=== PATIENT | female | born 1940 | race African-American/Black ===

== ENCOUNTER 2017-11-12 22:29 | Emergency (ER) | payer MEDICARE, OTHER ==
[2017-11-12 22:37] VITALS: BP 150/51
--- NOTE | 2017-11-12 23:40 | ER Document Report ---
ED Medical Screen (RME) - General Chief Complaint: Burn Stated Complaint: POSSIBLE BURN TO BACK Time Seen by Provider: 11/12/17 23:38 Mode of Arrival: Ambulatory Information source: Patient Notes: 77-year-old female presented to ED for burn to the upper back. Son states that she pulled a muscle and then laid on the heating pad and stayed there laying down sleeping. He states he came home from work found that she was on it sleep and on a heating pad made her get off checked her back and it was a blister there. She does have a partial first-degree partial second-degree burn to her upper back. Patient states that the pain is not real bad is just she knows it is there. Son is concerned because she is a diabetic I have greeted and performed a rapid initial assessment of this patient. A comprehensive ED assessment and evaluation of the patient, analysis of test results and completion of medical decision making process will be conducted by an additional ED providers. TRAVEL OUTSIDE OF THE [place] IN LAST 30 DAYS: No - Related Data Allergies/Adverse Reactions: lisinopril [Lisinopril] Allergy (Intermediate, Verified 02/10/14 08:50) olmesartan medoxomil [From Benicar] Adverse Reaction (Intermediate, Verified 02/14 08:50) Zyimpgs-Fal-Wjd Reductase Inhibitor Adverse Reaction (Intermediate, Verified 02/14 08:50) valsartan [From Diovan] Adverse Reaction (Intermediate, Verified 02/10/14 08:50) verapamil [Verapamil] Adverse Reaction (Intermediate, Verified 02/10/14 08:50) amlodipine besylate [From Norvasc] Adverse Reaction (Mild, Verified 02/10/14 08: 50) glipizide [From Glucotrol] Adverse Reaction (Mild, Verified 02/10/14 08:50) Nausea metformin HCl [From Glucophage] Adverse Reaction (Mild, Verified 02/10/14 08:50) Past Medical History - Past Medical History Cardiac Medical History: Reports: Hx Atrial Fibrillation, Hx Hypertension Denies: Hx Coronary Artery Disease, Hx Heart Attack Pulmonary Medical History: Denies: Hx Asthma, Hx Bronchitis, Hx COPD, Hx Pneumonia, Hx Tuberculosis Neurological Medical History: Denies: Hx Cerebrovascular Accident, Hx Seizures Endocrine Medical History: Reports: Hx Diabetes Mellitus Type 2 GI Medical History: Reports: Hx Ulcer Musculoskeltal Medical History: Reports Hx Arthritis - "MY BONES HURT A LITTLE BIT" Past Surgical History: Reports: Hx Tonsillectomy. Denies: Hx Hysterectomy, Hx Pacemaker - Immunizations Hx Diphtheria, Pertussis, Tetanus Vaccination: Yes Physical Exam - Vital signs Vitals: Temp Pulse Resp BP Pulse Ox 98.1 F 66 18 150/51 H 97 11/12/17 22:35 11/12/17 22:35 11/12/17 22:35 11/12/17 22:35 11/12/17 22:35 Course - Vital Signs Vital signs: Temp Pulse Resp BP Pulse Ox 98.1 F 66 18 150/51 H 97 11/12/17 22:35 11/12/17 22:35 11/12/17 22:35 11/12/17 22:35 11/12/17 22:35 Doctor's Discharge - Discharge Referrals: PAT MCNAIR PA [Primary Care Provider] - Follow up as needed
[2017-11-13] MEDS ORDERED: SILVER SULFADIAZINE 1% CREAM 400 GM TP PRN (01:47)
--- NOTE | 2017-11-13 01:50 | ER Document Report ---
ED General - General Chief Complaint: Burn Stated Complaint: POSSIBLE BURN TO BACK Time Seen by Provider: 11/12/17 23:38 Mode of Arrival: Ambulatory Notes: Patient presents with complaint of possible burn to her upper back. Patient reports that she was doing yard work and pulled a muscles so she used a heating pad and fell asleep on it for approximately two hours. Patient has no other complaints. TRAVEL OUTSIDE OF THE [place] IN LAST 30 DAYS: No - Related Data Allergies/Adverse Reactions: lisinopril [Lisinopril] Allergy (Intermediate, Verified 02/10/14 08:50) olmesartan medoxomil [From Benicar] Adverse Reaction (Intermediate, Verified 02/14 08:50) Pjkqtzu-Clg-Uwy Reductase Inhibitor Adverse Reaction (Intermediate, Verified 02/14 08:50) valsartan [From Diovan] Adverse Reaction (Intermediate, Verified 02/10/14 08:50) verapamil [Verapamil] Adverse Reaction (Intermediate, Verified 02/10/14 08:50) amlodipine besylate [From Norvasc] Adverse Reaction (Mild, Verified 02/10/14 08: 50) glipizide [From Glucotrol] Adverse Reaction (Mild, Verified 02/10/14 08:50) Nausea metformin HCl [From Glucophage] Adverse Reaction (Mild, Verified 02/10/14 08:50) Past Medical History - General Information source: Patient - Social History Smoking Status: Never Smoker Chew tobacco use (# tins/day): No Frequency of alcohol use: None Drug Abuse: None Family History: Reviewed & Not Pertinent Patient has suicidal ideation: No Patient has homicidal ideation: No - Past Medical History Cardiac Medical History: Reports: Hx Atrial Fibrillation, Hx Hypertension Denies: Hx Coronary Artery Disease, Hx Heart Attack Pulmonary Medical History: Denies: Hx Asthma, Hx Bronchitis, Hx COPD, Hx Pneumonia, Hx Tuberculosis Neurological Medical History: Denies: Hx Cerebrovascular Accident, Hx Seizures Endocrine Medical History: Reports: Hx Diabetes Mellitus Type 2 Renal/ Medical History: Denies: Hx Peritoneal Dialysis GI Medical History: Reports: Hx Ulcer Musculoskeletal Medical History: Reports Hx Arthritis - "MY BONES HURT A LITTLE BIT" Past Surgical History: Reports: Hx Tonsillectomy. Denies: Hx Hysterectomy, Hx Pacemaker - Immunizations Hx Diphtheria, Pertussis, Tetanus Vaccination: Yes Review of Systems - Review of Systems Constitutional: No symptoms reported EENT: No symptoms reported Cardiovascular: No symptoms reported Respiratory: No symptoms reported Gastrointestinal: No symptoms reported Genitourinary: No symptoms reported Female Genitourinary: No symptoms reported Musculoskeletal: No symptoms reported Skin: No symptoms reported Hematologic/Lymphatic: See HPI Neurological/Psychological: No symptoms reported Physical Exam - Vital signs Vitals: Temp Pulse Resp BP Pulse Ox 98.1 F 66 18 150/51 H 97 11/12/17 22:35 11/12/17 22:35 11/12/17 22:35 11/12/17 22:35 11/12/17 22:35 - Notes Notes: PHYSICAL EXAMINATION: GENERAL: Well-appearing, well-nourished and in no acute distress. HEAD: Atraumatic, normocephalic. EYES: Pupils equal round and reactive to light, extraocular movements intact, conjunctiva are normal. ENT: Nares patent, oropharynx clear without exudates. Moist mucous membranes. NECK: Normal range of motion, supple without lymphadenopathy LUNGS: Breath sounds clear to auscultation bilaterally and equal. No wheezes rales or rhonchi. HEART: Regular rate and rhythm without murmurs ABDOMEN: Soft, nontender, nondistended abdomen. No guarding, no rebound. No masses appreciated. Female : deferred Musculoskeletal: Normal range of motion, no pitting or edema. No cyanosis. NEUROLOGICAL: Cranial nerves grossly intact. Normal speech, normal gait. Normal sensory, motor exams PSYCH: Normal mood, normal affect. SKIN: First degree burn/erythema noted to right upper back near scapula measuring 20 cm x 20 cm. Second degree burn with mild blistering noted to a 4 cm x 4 cm area in the same location. Course - Re-evaluation Re-evalutation: Silvadene cream applied to right scapula area. Patients Son at bedside reports that he will assist with application of the burn cream at home and will make an appointment with her primary care provider tomorrow afternoon. Will follow up for burn reassessment. - Vital Signs Vital signs: Temp Pulse Resp BP Pulse Ox 98.1 F 66 18 150/51 H 97 11/12/17 22:35 11/12/17 22:35 11/12/17 22:35 11/12/17 22:35 11/12/17 22:35 Discharge - Discharge Clinical Impression: Burn Condition: Stable Disposition: HOME, SELF-CARE Additional Instructions: Hirsch The seriousness of a burn is not always obvious at first. Delayed tissue damage and secondary infection may occur despite proper treatment. Proper care is very important. A burn that is third-degree may need skin grafting. Most hirsch, however, are simply protected with dressings until healed. Keep the burn clean. If the dressing gets wet, remove it and blot the wound dry, then apply a fresh dressing. Dressings should be changed at least once daily. Soaks to remove crusting are usually started in about two days. Hirsch in certain areas require stretching to prevent disabling tightness. Your doctor will advise you about this. For pain control, you may frequently apply a hand towel that has been dipped in water with ice cubes. Do not apply ice directly to the burned areas. If any signs of infection occur (swelling, redness, increasing tenderness, red streaks, tender lumps in the armpit or groin above the burn, or fever), contact the doctor immediately. Please apply the Silvadene cream to the burn twice daily after cleansing with water. Please call Dr. Manzo in the morning and schedule an appointment. Referrals: ERICH MANZO MD [Primary Care Provider] - Follow up as needed
[2017-11-13] MEDS ORDERED: DIPH/PERTUSS(ACELL)/TETANUS VAC/PF 0.5 ML SYR (>=10YO) IM ONE (01:54)
== END 2017-11-13 02:20 | disposition home or self-care (01) ==
LOC: ER 22:29
DX: T21.03XA Burn of unspecified degree of upper back, initial encounter (principal); X19.XXXA Contact with other heat and hot substances, initial encounter; Y93.9 Activity, unspecified; Y92.009 Unspecified place in unspecified non-institutional (private) residence as the place of occurrence of the external cause; Y99.9 Unspecified external cause status; Z88.8 Allergy status to other drugs, medicaments and biological substances; I48.91 Unspecified atrial fibrillation; I10 Essential (primary) hypertension; E11.9 Type 2 diabetes mellitus without complications; M19.90 Unspecified osteoarthritis, unspecified site
CPT/HCPCS: 99283; 90471; 90715; J3490

== ENCOUNTER → 2017-12-23 | Outpatient (CLI) | payer MEDICARE, OTHER ==
[2017-12-23 15:50] LABS: ALANINE AMINOTRANSFERASE 24 U/L (9-52); ALBUMIN 4.5 g/dL (3.5-5.0); ALKALINE PHOSPHATASE 81 U/L (38-126); ANION GAP 14 (5-19); ASPARTATE AMINO TRANSFERASE 20 U/L (14-36); BILIRUBIN,DIRECT 0.3 mg/dL (0.0-0.4); BILIRUBIN,TOTAL 0.6 mg/dL (0.2-1.3); BLOOD UREA NITROGEN 12 mg/dL (7-20); CALCIUM 9.9 mg/dL (8.4-10.2); CARBON DIOXIDE 28 mmol/L (22-30); CHLORIDE 105 mmol/L (98-107); GLUCOSE 115 mg/dL (75-110); POTASSIUM 4.4 mmol/L (3.6-5.0); SODIUM 146.7 mmol/L (137-145); TOTAL PROTEIN 8.1 g/dL (6.3-8.2)
== END ==
LOC: OD 14:07
PROVIDERS: ATTEND Internal Medicine Geriatric Medicine
DX: I10 Essential (primary) hypertension (principal)
CPT/HCPCS: 36415; 80053

== ENCOUNTER 2018-04-20 17:14 | Emergency (ER) | payer MEDICARE, OTHER ==
--- NOTE | 2018-04-20 18:16 | ER Document Report ---
ED Extremity Problem, Upper - General Mode of Arrival: Ambulatory Information source: Patient, Relative TRAVEL OUTSIDE OF THE [place] IN LAST 30 DAYS: No - HPI Patient complains to provider of: Pain, Swelling - Erythema, Hand, Wrist Onset: Other - Thursday Recent injury: No Quality of pain: Sharp Severity of pain: Moderate Pain Level: 4 Associated symptoms: Other Exacerbated by: Movement, Exertion Relieved by: Nothing Similar symptoms previously: No Recently seen / treated by doctor: Yes - To urgent care and they sent her to the emergency room - General Chief Complaint: Hand Pain Stated Complaint: PAIN/SWELLING LEFT ARM Time Seen by Provider: 04/20/18 17:54 Notes: 77-year-old female presented to ED for complaint of pain redness and swelling to the left hand and wrist. Patient states the pain redness and swelling started on Thursday and has progressed since then. Patient states she has a history of blood pressure arthritis and diabetes. She states she does not have a history of gout. She denies any injuries to the wrist or hand. Patient is answering questions appropriately but her visitor states she does have dementia and is on medication for memory. (ANGÉLICA MEDLEY) - Related Data Allergies/Adverse Reactions: lisinopril [Lisinopril] Allergy (Intermediate, Verified 02/10/14 08:50) olmesartan medoxomil [From Benicar] Adverse Reaction (Intermediate, Verified 02/14 08:50) Umhagzv-Iij-Gpc Reductase Inhibitor Adverse Reaction (Intermediate, Verified 02/14 08:50) valsartan [From Diovan] Adverse Reaction (Intermediate, Verified 02/10/14 08:50) verapamil [Verapamil] Adverse Reaction (Intermediate, Verified 02/10/14 08:50) amlodipine besylate [From Norvasc] Adverse Reaction (Mild, Verified 02/10/14 08: 50) glipizide [From Glucotrol] Adverse Reaction (Mild, Verified 02/10/14 08:50) Nausea metformin HCl [From Glucophage] Adverse Reaction (Mild, Verified 02/10/14 08:50) Past Medical History - General Information source: Patient - Social History Smoking Status: Never Smoker Cigarette use (# per day): No Chew tobacco use (# tins/day): No Frequency of alcohol use: None Drug Abuse: None Lives with: Alone Family History: Reviewed & Not Pertinent Patient has suicidal ideation: No Patient has homicidal ideation: No - Past Medical History Cardiac Medical History: Reports: Hx Atrial Fibrillation, Hx Hypertension Pulmonary Medical History: Reports: None EENT Medical History: Reports: None Neurological Medical History: Reports: Other - Dementia Endocrine Medical History: Reports: Hx Diabetes Mellitus Type 2 Renal/ Medical History: Reports: None GI Medical History: Reports: Hx Ulcer Musculoskeletal Medical History: Reports Hx Arthritis - "MY BONES HURT A LITTLE BIT" Skin Medical History: Reports None Psychiatric Medical History: Reports: Hx Dementia Traumatic Medical History: Reports: None Infectious Medical History: Reports: None Past Surgical History: Reports: Hx Tonsillectomy - Immunizations Immunizations up to date: Yes Hx Diphtheria, Pertussis, Tetanus Vaccination: Yes Review of Systems - Review of Systems Constitutional: No symptoms reported EENT: No symptoms reported Cardiovascular: No symptoms reported Respiratory: No symptoms reported Gastrointestinal: No symptoms reported Genitourinary: No symptoms reported Female Genitourinary: No symptoms reported Musculoskeletal: Joint pain, Joint swelling, Other - Pain redness and swelling to the left wrist and hand Skin: No symptoms reported Hematologic/Lymphatic: No symptoms reported Neurological/Psychological: No symptoms reported -: Yes All other systems reviewed and negative Physical Exam - Vital signs Interpretation: Normal - General General appearance: Appears well, Alert - HEENT Head: Normocephalic, Atraumatic Eyes: Normal Pupils: PERRL - Respiratory Respiratory status: No respiratory distress Chest status: Nontender Breath sounds: Normal Chest palpation: Normal - Cardiovascular Rhythm: Regular Heart sounds: Normal auscultation Murmur: No - Abdominal Inspection: Normal Distension: No distension Bowel sounds: Normal Tenderness: Nontender Organomegaly: No organomegaly - Back Back: Normal, Nontender - Extremities General lower extremity: Normal inspection, Nontender, Normal color, Normal ROM , Normal temperature, Normal weight bearing. No: Jimbo's sign Wrist: Tender, Limited ROM - 2 pain, Other. No: Normal, Nontender, Axial load of thumb pain, Abrasion, Deformity, Dislocation, Ecchymosis, Instability, Laceration, Navicular tenderness Hand: Tender - Erythematous warm mildly swollen, No evidence of human bite, No evidence of FB - Erythema, Swelling. No: Normal, Nontender, Abrasion, Deformity , Dislocation, Ecchymosis, Instability, Nail injury, Laceration, Tendon deficit , Other - Neurological Neuro grossly intact: Yes Cognition: Normal Orientation: AAOx4 [place] Coma Scale Eye Opening: Spontaneous [place] Coma Scale Verbal: Oriented [place] Coma Scale Motor: Obeys Commands [place] Coma Scale Total: 15 Speech: Normal Motor strength normal: LUE, RUE, LLE, RLE Sensory: Normal - Psychological Associated symptoms: Normal affect, Normal mood - Skin Skin Temperature: Warm Skin Moisture: Dry Skin Color: Normal - Vital signs Vitals: Temp Pulse Resp BP Pulse Ox 98.3 F 64 16 146/50 H 95 04/20/18 17:23 1818 17:23 1818 17:23 18 17:23 18 17:23 Course - Diagnostic Test Radiology reviewed: Image reviewed, Reports reviewed - Re-evaluation Re-evalutation: 04/20/18 21:[address] Damon for the red swollen painful hand. X-ray was negative for any acute changes positive for arthritis. There is no obvious source for infection. Patient was treated with 40 mg of prednisone p.o. and Keflex. Daughter stated she was taken the patient to the primary care doctor tomorrow for follow-up. Patient has no history of gout and no history of smoking drinking or any drugs that should be causing gout. Patient is a diabetic on blood thinner with high blood pressure. Patient was discharged home with prescription for Keflex. (ANGÉLICA MEDLEY) 04/20/18 22:27 Evaluated patient as requested. exam is significant for erythema, warmth of the left hand. No breaks in skin, no deformity, FROM although painful, no kanavel signs, sensation/strength intact. Patient without systemic symptoms of fever, chills malaise or vomiting. Patient has no history of gout has not had any changes in her diet, denies injury. Unclear etiology. Recommended cellulitis coverage. Patient has appointment with pcp tomorrow. (CRIS DAMON) - Vital Signs Vital signs: Temp Pulse Resp BP Pulse Ox 98.3 F 67 16 128/74 H 98 18 17:23 1818 19:08 18 19:08 04/20/18 19:08 04/20/18 19:08 Discharge - Discharge Clinical Impression: Pain and swelling of right wrist Condition: Stable Disposition: HOME, SELF-CARE Additional Instructions: You were seen today for pain redness and swelling to your left wrist Your x-ray shows arthritis. There are no openings in the skin for a source for an infection but the area is erythematous or red. You do not have any history of gout or any risk factors for gout. You have been treated today with 1 dose of prednisone and antibiotics for your symptoms. CELLULITIS: You have an infection of your skin and underlying soft tissues called cellulitis. This is due to bacteria, which can enter through any break in the skin, or even through an irritated hair follicle. Untreated, cellulitis will usually worsen. Antibiotics are required. Usually, warm packs or warm soaks, and elevation of the infected area are recommended. You should start getting better within 24 to 36 hours. Most infections respond quickly to the right medication. Follow-up care is important, however, to check for abscess (boil) formation, unsuspected foreign body, or resistant infection. If you develop fever, chills, or if the area of infection is becoming rapidly more swollen or painful, call the doctor at once. Cephalexin The antibiotic you've been prescribed is a member of the cephalosporin class. This type of antibiotic covers a wide variety of infections, including those of the skin, lungs, and urinary tract. It's useful for staph infections. This antibiotic is slightly similar to the penicillin family. In rare cases , a person who is allergic to penicillin will also be allergic to this medication. If you have had a severe allergic reaction to penicillin, and have not taken this antibiotic since that time, notify your doctor. Antibiotics which cover many germs ("broad spectrum" antibiotics) are more likely to cause diarrhea or "yeast" infections. Women prone to vaginal yeast problems may suffer an attack after taking this antibiotic. In infants, oral thrush (white spots "stuck" on the cheek) or yeast diaper rash may result. See your doctor if these problems occur. Call at once if you develop itching, hives , shortness of breath, or lightheadedness. FOLLOW-UP CARE: If you have been referred to a physician for follow-up care, call the physician s office for an appointment as you were instructed or within the next two days. If you experience worsening or a significant change in your symptoms, notify the physician immediately or return to the Emergency Department at any time for re-evaluation. Prescriptions: Cephalexin Monohydrate [Keflex 500 mg Capsule] 500 mg PO Q6H 5 Days capsule Forms: Elevated Blood Pressure Referrals: ERICH MANZO MD [Primary Care Provider] - Follow up tomorrow
--- NOTE | 2018-04-20 18:40 | RADIOLOGY REPORT (SQ) ---
EXAM DESCRIPTION: HAND LEFT 3 VIEWS COMPLETED DATE/TIME: 04/20/2018 6:30 pm REASON FOR STUDY: pain swelling redness COMPARISON: None. EXAM PARAMETERS: NUMBER OF VIEWS: Three views. TECHNIQUE: AP, lateral and oblique radiographic images acquired of the left hand. LIMITATIONS: None. FINDINGS: MINERALIZATION: Normal. BONES: No acute fracture. Distal degenerative changes with osteophytes. JOINTS: No effusions. SOFT TISSUES: No soft tissue swelling. No foreign body. OTHER: No other significant finding. IMPRESSION: No acute fracture. Osteoarthritis. TECHNICAL DOCUMENTATION: JOB ID: [id number] [employer]- All Rights Reserved Reading location - IP/workstation name: [email or web address]
--- NOTE | 2018-04-20 18:40 | RADIOLOGY REPORT (SQ) ---
EXAM DESCRIPTION: WRIST LEFT 3 VIEWS COMPLETED DATE/TIME: 04/20/2018 6:30 pm REASON FOR STUDY: pain swelling redness COMPARISON: None. NUMBER OF VIEWS: Three views. TECHNIQUE: AP, lateral, and oblique radiographic images acquired of the left wrist. LIMITATIONS: None. FINDINGS: MINERALIZATION: Normal. BONES: No acute fracture or dislocation. No worrisome bone lesions. Normal alignment. Degenerative ch anges of the trapezium and scaphoid articulation. JOINTS: No erosions. No baldemar-articular osteopenia. No chondrocalcinosis. SOFT TISSUES: No swelling. No calcifications. OTHER: No other significant finding. IMPRESSION: Osteoarthritis. TECHNICAL DOCUMENTATION: JOB ID: [id number] [employer]- All Rights Reserved Reading location - IP/workstation name: [email or web address]
[2018-04-20] MEDS ORDERED: CEPHALEXIN 500 MG CAPSULE PO ONE (18:48)
[2018-04-20] MEDS ORDERED: PREDNISONE 20 MG TABLET PO ONE (18:48)
[2018-04-20 19:09] VITALS: BP 128/74
== END 2018-04-20 19:09 | disposition home or self-care (01) ==
LOC: ER 17:14
DX: M79.642 Pain in left hand (principal); M79.89 Other specified soft tissue disorders; I48.91 Unspecified atrial fibrillation; I10 Essential (primary) hypertension; E11.9 Type 2 diabetes mellitus without complications
CPT/HCPCS: 99283; 73130; 73110; A9270 ×2; J7512

== ENCOUNTER 2018-06-22 15:35 | Emergency (ER) | payer MEDICARE ==
--- NOTE | 2018-06-22 17:40 | ER Document Report ---
ED Medical Screen (RME) - General Chief Complaint: Arm Pain Stated Complaint: LEFT ARM AND LEG PAIN Time Seen by Provider: 06/22/18 17:12 Primary Care Provider: ERICH MANZO MD [Primary Care Provider] - Follow up as needed Mode of Arrival: Ambulatory Information source: Patient Notes: Patient is an 78-year-old female who presents to the emergency department with complaints of left arm pain and left leg pain. Patient reports the left arm pain started yesterday in the left leg pain started 2-3 days ago. She states that she is normally ambulatory however she now cannot walk due to the pain. Exam: Equal strength bilaterally. Normal sensation bilaterally. No focal neurological deficits. I have greeted and performed a rapid initial assessment of this patient. A comprehensive ED assessment and evaluation of the patient, analysis of test results and completion of the medical decision making process will be conducted by additional ED providers. Dictation of this chart was performed using voice recognition software; therefore, there may be some unintended grammatical errors. TRAVEL OUTSIDE OF THE [place] IN LAST 30 DAYS: No - Related Data Allergies/Adverse Reactions: lisinopril [Lisinopril] Allergy (Intermediate, Verified 02/10/14 08:50) olmesartan medoxomil [From Benicar] Adverse Reaction (Intermediate, Verified 02/10/14 08:50) Gknwnci-Rds-Jcw Reductase Inhibitor Adverse Reaction (Intermediate, Verified 02/10/14 08:50) valsartan [From Diovan] Adverse Reaction (Intermediate, Verified 02/10/14 08:50) verapamil [Verapamil] Adverse Reaction (Intermediate, Verified 02/10/14 08:50) amlodipine besylate [From Norvasc] Adverse Reaction (Mild, Verified 02/10/14 08:50) glipizide [From Glucotrol] Adverse Reaction (Mild, Verified 02/10/14 08:50) Nausea metformin HCl [From Glucophage] Adverse Reaction (Mild, Verified 02/10/14 08:50) Past Medical History - Social History Chew tobacco use (# tins/day): No Frequency of alcohol use: None Drug Abuse: None - Past Medical History Cardiac Medical History: Reports: Hx Atrial Fibrillation, Hx Hypertension Denies: Hx Heart Attack Pulmonary Medical History: Denies: Hx Asthma, Hx Bronchitis, Hx COPD, Hx Pneumonia, Hx Tuberculosis Neurological Medical History: Denies: Hx Seizures Endocrine Medical History: Reports: Hx Diabetes Mellitus Type 2 Renal/ Medical History: Denies: Hx Peritoneal Dialysis GI Medical History: Reports: Hx Ulcer Musculoskeltal Medical History: Reports Hx Arthritis - "MY BONES HURT A LITTLE BIT" Psychiatric Medical History: Reports: Hx Dementia Past Surgical History: Reports: Hx Tonsillectomy. Denies: Hx Hysterectomy - Immunizations Immunizations up to date: Yes Hx Diphtheria, Pertussis, Tetanus Vaccination: Yes Physical Exam - Vital signs Vitals: Temp Pulse Resp BP Pulse Ox 98.2 F 69 16 138/44 H 96 06/22/18 15:47 06/22/18 15:47 06/22/18 15:47 06/22/18 15:47 06/22/18 15:47 Course - Vital Signs Vital signs: Temp Pulse Resp BP Pulse Ox 98.2 F 69 16 138/44 H 96 06/22/18 15:47 06/22/18 15:47 06/22/18 15:47 06/22/18 15:47 06/22/18 15:47 Doctor's Discharge - Discharge Referrals: ERICH MANZO MD [Primary Care Provider] - Follow up as needed
[2018-06-22 18:37] LABS: ABSOLUTE BASOPHILS # (AUTO) 0.1 10^3/uL (0.0-0.2); ABSOLUTE LYMPHOCYTES (AUTO) 1.3 10^3/uL (0.5-4.7); ABSOLUTE MONOCYTES (AUTO) 0.9 10^3/uL (0.1-1.4); ABSOLUTE NEUT (AUTO) 7.3 10^3/uL (1.7-8.2); EOSINOPHILS % (AUTO) 0.3 % (0-6); HEMATOCRIT 36.9 % (36.0-47.0); HEMOGLOBIN 12.6 g/dL (12.0-15.5); LYMPHOCYTES % (AUTO) 13.6 % (13-45); MEAN CORPUSCULAR HEMOGLOBIN 31.9 pg (27.0-33.4); MEAN CORPUSCULAR HGB CONC 34.1 g/dL (32.0-36.0); MEAN CORPUSCULAR VOLUME 93 fl (80-97); MONOCYTES % (AUTO) 9.3 % (3-13); PLATELET COUNT 219 10^3/uL (150-450); RED BLOOD COUNT 3.96 10^6/uL (3.72-5.28); RED CELL DISTRIBUTION WIDTH 14.1 % (11.5-14.0); SEGMENTED NEUTROPHILS % (AUTO) 75.8 % (42-78); TOTAL CELLS COUNTED % (AUTO) 100 %; WHITE BLOOD COUNT 9.6 10^3/uL (4.0-10.5)
[2018-06-22 18:47] LABS: APPEARANCE,URINE CLOUDY; BILIRUBIN,URINE NEGATIVE (NEGATIVE); COLOR,URINE YELLOW; GLUCOSE, URINE 50 mg/dL (NEGATIVE); KETONES,URINE NEGATIVE (NEGATIVE); LEUKOCYTE ESTERASE,URINE NEGATIVE (NEGATIVE); NITRITE,URINE NEGATIVE (NEGATIVE); PROTEIN,URINE 30 mg/dL (NEGATIVE); URINE SPECIFIC GRAVITY 1.018; UROBILINOGEN,URINE NEGATIVE mg/dL (<2.0)
[2018-06-22 18:55] LABS: ALANINE AMINOTRANSFERASE 25 U/L (9-52); ALBUMIN 4.4 g/dL (3.5-5.0); ALKALINE PHOSPHATASE 75 U/L (38-126); ANION GAP 12 (5-19); ASPARTATE AMINO TRANSFERASE 20 U/L (14-36); BILIRUBIN,DIRECT 0.3 mg/dL (0.0-0.4); BILIRUBIN,TOTAL 0.5 mg/dL (0.2-1.3); BLOOD UREA NITROGEN 17 mg/dL (7-20); CALCIUM 9.3 mg/dL (8.4-10.2); CARBON DIOXIDE 29 mmol/L (22-30); CHLORIDE 104 mmol/L (98-107); GLUCOSE 209 mg/dL (75-110); SODIUM 145.2 mmol/L (137-145); TOTAL PROTEIN 7.5 g/dL (6.3-8.2)
[2018-06-22] MEDS ORDERED: POTASSIUM CHLORIDE 10 MEQ CAPSULE.ER PO ONE (20:10)
--- NOTE | 2018-06-22 20:57 | ER Document Report ---
ED General - General Chief Complaint: Arm Pain Stated Complaint: LEFT ARM AND LEG PAIN Time Seen by Provider: 06/22/18 17:12 Primary Care Provider: ERICH MANZO MD [Primary Care Provider] - Follow up as needed Mode of Arrival: Ambulatory TRAVEL OUTSIDE OF THE [place] IN LAST 30 DAYS: No - Related Data Allergies/Adverse Reactions: lisinopril [Lisinopril] Allergy (Intermediate, Verified 06/22/18 20:56) olmesartan medoxomil [From Benicar] Adverse Reaction (Intermediate, Verified 06/22/18 20:56) Wjfmeqb-Eax-Kjj Reductase Inhibitor Adverse Reaction (Intermediate, Verified 06/22/18 20:56) valsartan [From Diovan] Adverse Reaction (Intermediate, Verified 06/22/18 20:56) verapamil [Verapamil] Adverse Reaction (Intermediate, Verified 06/22/18 20:56) amlodipine besylate [From Norvasc] Adverse Reaction (Mild, Verified 06/22/18 20:56) glipizide [From Glucotrol] Adverse Reaction (Mild, Verified 06/22/18 20:56) Nausea metformin HCl [From Glucophage] Adverse Reaction (Mild, Verified 06/22/18 20:56) Past Medical History - General Information source: Patient - Social History Smoking Status: Never Smoker Chew tobacco use (# tins/day): No Frequency of alcohol use: None Drug Abuse: None Family History: Reviewed & Not Pertinent Patient has suicidal ideation: No Patient has homicidal ideation: No - Past Medical History Cardiac Medical History: Reports: Hx Atrial Fibrillation, Hx Hypertension Denies: Hx Heart Attack Pulmonary Medical History: Denies: Hx Asthma, Hx Bronchitis, Hx COPD, Hx Pneumonia, Hx Tuberculosis Neurological Medical History: Denies: Hx Seizures Endocrine Medical History: Reports: Hx Diabetes Mellitus Type 2 Renal/ Medical History: Denies: Hx Peritoneal Dialysis GI Medical History: Reports: Hx Ulcer Musculoskeletal Medical History: Reports Hx Arthritis - "MY BONES HURT A LITTLE BIT" Psychiatric Medical History: Reports: Hx Dementia Past Surgical History: Reports: Hx Tonsillectomy. Denies: Hx Hysterectomy - Immunizations Immunizations up to date: Yes Hx Diphtheria, Pertussis, Tetanus Vaccination: Yes Physical Exam - Vital signs Vitals: Temp Pulse Resp BP Pulse Ox 98.2 F 69 16 138/44 H 96 06/22/18 15:47 02/19/19 15:47 06/22/18 15:47 06/22/18 15:47 06/22/18 15:47 Course - Vital Signs Vital signs: Temp Pulse Resp BP Pulse Ox 98.2 F 69 16 138/44 H 96 06/22/18 15:47 06/22/18 15:47 06/22/18 15:47 06/22/18 15:47 06/22/18 15:47 - Laboratory Result Diagrams: 06/22/18 18:18 06/22/18 18:18 Laboratory results interpreted by me: 06/22/18 06/22/18 06/22/18 18:00 18:18 18:18 RDW 14.1 H Sodium 145.2 H Potassium 3.0 L* Glucose 209 H Urine Protein 30 H Urine Glucose (UA) 50 H Discharge - Discharge Clinical Impression: Hypokalemia Joint pain Qualifiers: Joint pain location: unspecified Qualified Code(s): M25.50 - Pain in unspecified joint Condition: Stable Disposition: HOME, SELF-CARE Additional Instructions: Your blood work today showed that your potassium was on the low side. We gave you a dose of potassium here in the emergency department and I am prescribing some for you to take at home. I think your pain is most likely being caused by arthritis. You may take your qhop-qmy-gzrksra Tylenol arthritis pain medicat ion. Please follow-up with your primary care provider in the next 2-3 days for follow-up. Return to the emergency department if you experience worsening symptoms or you develop weakness in any of your extremities. Prescriptions: Potassium Chloride [Klor-Con 10 Meq Capsule ER] 10 meq PO DAILY #30 tablet.sa Referrals: ERICH MANZO MD [Primary Care Provider] - Follow up as needed
[2018-06-22] MEDS ORDERED: ACETAMINOPHEN 325 MG TABLET PO ONE (23:48)
--- NOTE | 2018-06-22 23:52 | ER Document Report ---
ED General - General Chief Complaint: Arm Pain Stated Complaint: LEFT ARM AND LEG PAIN Time Seen by Provider: 06/22/18 17:12 Primary Care Provider: ERICH MANZO MD [Primary Care Provider] - Follow up tomorrow Mode of Arrival: Ambulatory TRAVEL OUTSIDE OF THE [place] IN LAST 30 DAYS: No - HPI Notes: Patient is a 78-year-old female that presents to the emergency department for chief complaint of left arm and leg pain. Patient states the pain started yesterday and has gradually been getting worse. She denies any numbness or weakness on her left side. She denies any headache, vision changes, chest pain, fevers and chills. She states her pain is achy in nature and worse with movement. She has not taken any ydyk-rov-vxhzhru medication. She denies any relieving factors. Patient is not sure if she is ever had symptoms like this before. She does live alone but denies any history of trauma. She denies any [address] on her left side that is more painful than others. Past Medical History: Hypertension Past Surgical History: Reviewed in chart Social History: Denies tobacco or alcohol use Family History: Reviewed and noncontributory for presenting illness Allergies: Reviewed, see documented allergy list. REVIEW OF SYSTEMS: CONSTITUTIONAL : No fever No chills No diaphoresis No recent illness EENT: No vision changes No congestion No sore throat CARDIOVASCULAR: No chest pain No palpitations RESPIRATORY: No shortness of breath No cough No difficulty breathing GASTROINTESTINAL: No abdominal pain No nausea No vomiting No diarrhea GENITOURINARY: No dysuria No hematuria No difficulty urinating MUSCULOSKELETAL: No back pain leg pain arm pain SKIN: No rashes No lesions LYMPHATIC: No swollen, enlarged glands. NEUROLOGICAL: No lightheadedness No headache No weakness No paresthesias PSYCHIATRIC: No anxiety No depression PHYSICAL EXAMINATION: Vital signs reviewed, nursing noted reviewed. GENERAL: Well-appearing, well-nourished and in no acute distress. HEAD: Atraumatic, normocephalic. EYES: Eyes appear normal, extraocular movements intact, sclera anicteric, conju nctiva are normal. ENT: nares patent, oropharynx clear without exudates. Moist mucous membranes. NECK: Normal range of motion, supple without lymphadenopathy LUNGS: Breath sounds clear to auscultation bilaterally and equal. No wheezes rales or rhonchi. HEART: Regular rate and rhythm without murmurs ABDOMEN: Soft, nontender, normoactive bowel sounds. No rebound, guarding, or rigidity. No masses appreciated. EXTREMITIES: Lateral epicondylar tenderness in the left elbow, pain with left elbow range of motion, no deformity to left elbow. Tenderness with range of motion of left shoulder and left wrist. No focal tenderness to left lower extremity or pain with range of motion. no pitting or edema. NEUROLOGICAL: No focal neurological deficits. Moves all extremities spontaneously Motor and sensory grossly intact on exam. PSYCH: Normal mood, normal affect. SKIN: Warm, Dry, normal turgor, no rashes or lesions noted on exposed skin - Related Data Allergies/Adverse Reactions: lisinopril [Lisinopril] Allergy (Intermediate, Verified 06/22/18 20:56) olmesartan medoxomil [From Benicar] Adverse Reaction (Intermediate, Verified 06/22/18 20:56) Iptemif-Niv-Ila Reductase Inhibitor Adverse Reaction (Intermediate, Verified 06/22/18 20:56) valsartan [From Diovan] Adverse Reaction (Intermediate, Verified 06/22/18 20:56) verapamil [Verapamil] Adverse Reaction (Intermediate, Verified 06/22/18 20:56) amlodipine besylate [From Norvasc] Adverse Reaction (Mild, Verified 06/22/18 20:56) glipizide [From Glucotrol] Adverse Reaction (Mild, Verified 06/22/18 20:56) Nausea metformin HCl [From Glucophage] Adverse Reaction (Mild, Verified 06/22/18 20:56) Past Medical History - General Information source: Patient - Social History Smoking Status: Never Smoker Chew tobacco use (# tins/day): No Frequency of alcohol use: None Drug Abuse: None Family History: Reviewed & Not Pertinent Patient has suicidal ideation: No Patient has homicidal ideation: No - Past Medical History Cardiac Medical History: Reports: Hx Atrial Fibrillation, Hx Hypertension Denies: Hx Heart Attack Pulmonary Medical History: Denies: Hx Asthma, Hx Bronchitis, Hx COPD, Hx Pneumonia, Hx Tuberculosis Neurological Medical History: Denies: Hx Seizures Endocrine Medical History: Reports: Hx Diabetes Mellitus Type 2 Renal/ Medical History: Denies: Hx Peritoneal Dialysis GI Medical History: Reports: Hx Ulcer Musculoskeletal Medical History: Reports Hx Arthritis - "MY BONES HURT A LITTLE BIT" Psychiatric Medical History: Reports: Hx Dementia Past Surgical History: Reports: Hx Tonsillectomy. Denies: Hx Hysterectomy - Immunizations Immunizations up to date: Yes Hx Diphtheria, Pertussis, Tetanus Vaccination: Yes Physical Exam - Vital signs Vitals: Temp Pulse Resp BP Pulse Ox 98.2 F 69 16 138/44 H 96 06/22/18 15:47 06/22/18 15:47 06/22/18 15:47 06/22/18 15:47 06/22/18 15:47 Course - Re-evaluation Re-evalutation: 06/22/18 23:51 Vitals reviewed. Nursing notes reviewed. Patient has no focal neurologic deficits or strokelike symptoms. She does have focal tenderness to her left elbow and x-ray will be obtained. She has no external signs of injury. Her potassium is low at 3.0 and will be replaced orally. Patient given Tylenol for pain. 06/23/18 00:34 Patient's left elbow x-ray is negative. She feels improved currently. I did attempt to reach Dr. Manzo to help arrange close outpatient follow-up but did not have a return page yet. Patient is otherwise hemodynamically stable and well-appearing. I do not suspect septic arthritis. Symptoms are likely musculoskeletal. She will be discharged home in stable condition and advised to follow-up with her primary care doctor tomorrow. She will return to the emergency room for any new or worsening symptoms. Laboratory 06/22/18 06/22/18 06/22/18 18:00 18:18 18:18 WBC 9.6 RBC 3.96 Hgb 12.6 Hct 36.9 MCV 93 MCH 31.9 MCHC 34.1 RDW 14.1 H Plt Count 219 Seg Neutrophils % 75.8 Lymphocytes % 13.6 Monocytes % 9.3 Eosinophils % 0.3 Basophils % 1.0 Absolute Neutrophils 7.3 Absolute Lymphocytes 1.3 Absolute Monocytes 0.9 Absolute Eosinophils 0.0 Absolute Basophils 0.1 Sodium 145.2 H Potassium 3.0 L* Chloride 104 Carbon Dioxide 29 Anion Gap 12 BUN 17 Creatinine 0.59 Est GFR ( Amer) > 60 Est GFR (Non-Af Amer) > 60 Glucose 209 H Calcium 9.3 Total Bilirubin 0.5 Direct Bilirubin 0.3 Neonat Total Bilirubin Not Reportable Neonat Direct Bilirubin Not Reportable Neonat Indirect Bili Not Reportable AST 20 ALT 25 Alkaline Phosphatase 75 Total Protein 7.5 Albumin 4.4 Urine Color YELLOW Urine Appearance CLOUDY Urine pH 5.0 Ur Specific [place] 1.018 Urine Protein 30 H Urine Glucose (UA) 50 H Urine Ketones NEGATIVE Urine Blood NEGATIVE Urine Nitrite NEGATIVE Urine Bilirubin NEGATIVE Urine Urobilinogen NEGATIVE Ur Leukocyte Esterase NEGATIVE Urine WBC (Auto) 5 Urine RBC (Auto) 34 Urine Bacteria (Auto) 2+ Squamous Epi Cells Auto 14 Urine Mucus (Auto) FEW Urine Ascorbic Acid NEGATIVE Elbow X-Ray 06/22/18 23:49 IMPRESSION: No acute abnormality. - Vital Signs Vital signs: Temp Pulse Resp BP Pulse Ox 98.2 F 67 20 151/54 H 99 06/22/18 21:05 06/22/18 21:05 06/22/18 21:05 06/22/18 21:05 06/22/18 21:05 - Laboratory Result Diagrams: 06/22/18 18:18 06/22/18 18:18 Laboratory results interpreted by me: 06/22/18 06/22/18 06/22/18 18:00 18:18 18:18 RDW 14.1 H Sodium 145.2 H Potassium 3.0 L* Glucose 209 H Urine Protein 30 H Urine Glucose (UA) 50 H - EKG Interpretation by Me Additional EKG results interpreted by me: 06/23/18 00:36 Interpreted by myself 2113: Normal sinus rhythm, rate 71, right bundle branch block, normal axis Discharge - Discharge Clinical Impression: Hypokalemia Joint pain Qualifiers: Joint pain location: unspecified Qualified Code(s): M25.50 - Pain in unspecified joint Condition: Stable Disposition: HOME, SELF-CARE Instructions: Hypokalemia ([facility]) Additional Instructions: Your blood work today showed that your potassium was on the low side. We gave you a dose of potassium here in the emergency department and I am prescribing some for you to take at home. I think your pain is most likely being caused by arthritis. You may take your qnuv-vge-mutqowz Tylenol arthritis pain medication. Please follow-up with your primary care provider in the next 2-3 days for follow-up. Return to the emergency department if you experience worsening symptoms or you develop weakness in any of your extremities. Prescriptions: Potassium Chloride [Klor-Con 10 Meq Capsule ER] 10 meq PO DAILY #30 tablet.sa Potassium Chloride 10 meq PO DAILY #5 [email or web address] Referrals: ERICH MANZO MD [Primary Care Provider] - Follow up tomorrow
--- NOTE | 2018-06-23 00:30 | RADIOLOGY REPORT (SQ) ---
EXAM DESCRIPTION: XR ELBOW 1-2 VIEWS COMPLETED DATE/TME: 06/22/2018 23:49 CLINICAL HISTORY: 78 years, Female, pain COMPARISON: None. FINDINGS: No fracture or dislocation. Soft tissues are unremarkable. IMPRESSION: No acute abnormality.
[2018-06-23 00:46] VITALS: BP 129/52
--- NOTE | 2018-06-23 07:43 | EKG REPORT ---
SEVERITY:- ABNORMAL ECG - SINUS RHYTHM PROBABLE LEFT ATRIAL ABNORMALITY RIGHT BUNDLE BRANCH BLOCK NONSPECIFIC ST-T CHANGES- INFERIOR LEADS : Confirmed by: Thanh Durant MD 23-Jun-2018 07:42:16
== END 2018-06-23 01:00 | disposition home or self-care (01) ==
LOC: ER 15:35
DX: E87.6 Hypokalemia (principal); M25.50 Pain in unspecified joint; M79.602 Pain in left arm; I48.91 Unspecified atrial fibrillation; I10 Essential (primary) hypertension; E11.9 Type 2 diabetes mellitus without complications
CPT/HCPCS: 93005; 99284; 36415; 83735; 85025; 80053; 81001; 73070; 93010; A9270